=== PATIENT | female | born 1985 | race Caucasian/White ===

== ENCOUNTER 2023-01-16 20:03 | Emergency (ER) | payer OTHER ==
[2023-01-16 20:31] VITALS: BMI 29.1
[2023-01-16] MEDS ORDERED: ACETAMINOPHEN 325 MG TABLET (FP) PO ONE (21:08)
[2023-01-16 21:28] VITALS: BP 104/66; PULSE 69; RESP 14; TEMP 98.9
[2023-01-16] MEDS ORDERED: ACETAMINOPHEN 325 MG TABLET (FP) ONE (22:19)
[2023-01-16 23:14] LABS: EOS % 2.3 % (0-4.5); HEMATOCRIT 35.6 % (32.4-45.2); HEMOGLOBIN 11.6 GM/dL (10.7-15.3); LYMPH % 37.7 % (8-40); MCH 27.7 pg (25.7-33.7); MCHC 32.7 g/dl (32.0-36.0); MEAN CELL VOLUME 84.8 fl (80-96); MEAN PLT VOLUME 8.3 fl (7.5-11.1); MONO % 7.5 % (3.8-10.2); NEUT % 51.5 % (42.8-82.8); PLATELET COUNT 204 10^3/uL (134-434); RBC 4.19 M/mm3 (3.60-5.2); RDW 16.5 % (11.6-15.6); WHITE BLOOD COUNT 8.8 K/mm3 (4.0-10.0)
[2023-01-16 23:29] LABS: CALCIUM 8.6 mg/dL (8.5-10.1)
[2023-01-16 23:30] LABS: ALBUMIN 3.7 g/dl (3.4-5.0)
[2023-01-16 23:35] LABS: BILIRUBIN,TOTAL 0.4 mg/dL (0.2-1); TOT PROT 7.1 g/dl (6.4-8.2)
== END 2023-01-17 00:13 | disposition home or self-care (01) ==
LOC: JER 20:03
DX: R00.2 Palpitations (principal); R07.89 Other chest pain; Z20.822 Contact with and (suspected) exposure to COVID-19
CPT/HCPCS: 0241U-QW; 36415; 71045-TC-FY; 80053; 83735; 84443; 84484; 84703; 85025; 93005; 93010; 99285-25

== ENCOUNTER 2023-03-19 21:40 | Emergency (ER) | payer OTHER ==
[2023-03-19 21:49] VITALS: RESP 18; TEMP 98.2; BMI 28.6
[2023-03-19] MEDS ORDERED: ACETAMINOPHEN 1000 MG/100 ML BAG IVPB ONE (22:11)
[2023-03-19] MEDS ORDERED: SODIUM CHLORIDE 0.9% 500 ML INFUS.BAG IV ONE (22:12)
[2023-03-19] MEDS ORDERED: ONDANSETRON 4 MG/2 ML VIAL IVPUSH ONE (22:12)
[2023-03-19] MEDS ORDERED: FAMOTIDINE 20 MG/50 ML IVPB 20 MG/50 ML MG IVPB ONE ×2 (22:12→22:29)
[2023-03-19] MEDS ORDERED: ACETAMINOPHEN INJECTION 100 ML IVPB ONE (22:29)
[2023-03-19] MEDS ORDERED: ONDANSETRON 4 MG/2 ML VIAL ONE (22:29)
[2023-03-19 22:59] LABS: BASO % 0.9 % (0-2.0); EOS % 2.6 % (0-4.5); HEMATOCRIT 37.7 % (32.4-45.2); HEMOGLOBIN 12.1 GM/dL (10.7-15.3); LYMPH % 32.3 % (8-40); MCH 27.3 pg (25.7-33.7); MCHC 32.2 g/dl (32.0-36.0); MEAN CELL VOLUME 84.7 fl (80-96); MEAN PLT VOLUME 7.8 fl (7.5-11.1); NEUT % 55.2 % (42.8-82.8); PLATELET COUNT 222 10^3/uL (134-434); RBC 4.45 M/mm3 (3.60-5.2); RDW 17.1 % (11.6-15.6); WHITE BLOOD COUNT 8.7 K/mm3 (4.0-10.0)
[2023-03-19 23:20] LABS: ALBUMIN 3.5 g/dl (3.4-5.0); BLOOD UREA NITROGEN 18.5 mg/dL (7-18)
[2023-03-19 23:22] LABS: CREATININE 0.9 mg/dL (0.55-1.3)
[2023-03-19 23:24] LABS: BILIRUBIN,TOTAL 0.4 mg/dL (0.2-1); TOT PROT 6.8 g/dl (6.4-8.2)
[2023-03-20 03:06] VITALS: BP 96/61; PULSE 61
== END 2023-03-20 03:12 | disposition home or self-care (01) ==
LOC: JER 21:40
PROC: 3E033GC Introduction of Other Therapeutic Substance into Peripheral Vein, Percutaneous Approach (ICD-10-PCS; principal; 2023-03-19)
PROC: 3E033GC Introduction of Other Therapeutic Substance into Peripheral Vein, Percutaneous Approach (ICD-10-PCS; 2023-03-19)
PROC: 3E033GC Introduction of Other Therapeutic Substance into Peripheral Vein, Percutaneous Approach (ICD-10-PCS; 2023-03-19)
DX: R10.13 Epigastric pain (principal)
CPT/HCPCS: 36415; 74177-TC; 80053; 83690; 84703; 85025; 99285-25; Q9967

== ENCOUNTER 2023-06-21 10:32 | Emergency (ER) | payer OTHER ==
[2023-06-21 10:46] VITALS: BP 94/61; PULSE 69; RESP 18; TEMP 98.8; BMI 27.9
[2023-06-21] MEDS ORDERED: ACETAMINOPHEN 500 MG TABLET (FP) PO ONE (12:28)
[2023-06-21] MEDS ORDERED: ACETAMINOPHEN 500 MG TABLET (FP) ONE (12:32)
== END 2023-06-21 13:44 | disposition home or self-care (01) ==
LOC: JERFT 10:32
DX: Z48.03 Encounter for change or removal of drains (principal)
CPT/HCPCS: 99283-25

== ENCOUNTER 2023-08-22 23:07 | Emergency (ER) | payer OTHER ==
[2023-08-22 23:11] VITALS: BP 108/74; PULSE 72; RESP 18; TEMP 97.3; BMI 28.3
[2023-08-23] MEDS ORDERED: ACETAMINOPHEN 1000 MG/100 ML BAG IVPB ONE (00:06)
[2023-08-23] MEDS ORDERED: ACETAMINOPHEN INJECTION 100 ML IVPB ONE (00:12)
[2023-08-23] MEDS ORDERED: ACETAMINOPHEN 500 MG TABLET (FP) PO ONE (00:38)
[2023-08-23] MEDS ORDERED: ONDANSETRON *ODT* 4 MG TABLET SL ONE (00:44)
[2023-08-23] MEDS ORDERED: ONDANSETRON *ODT* 4 MG TABLET ONE (00:44)
[2023-08-23] MEDS ORDERED: ACETAMINOPHEN 325 MG TABLET (FP) ONE (00:44)
[2023-08-23 00:50] LABS: EOS % 2.7 % (0-4.5); HEMATOCRIT 40.6 % (32.4-45.2); HEMOGLOBIN 13.4 GM/dL (10.7-15.3); LYMPH % 37.2 % (8-40); MCH 29.3 pg (25.7-33.7); MEAN CELL VOLUME 88.9 fl (80-96); MEAN PLT VOLUME 7.9 fl (7.5-11.1); MONO % 6.7 % (3.8-10.2); NEUT % 52.4 % (42.8-82.8); PLATELET COUNT 247 10^3/uL (134-434); RBC 4.57 M/mm3 (3.60-5.2); RDW 14.9 % (11.6-15.6); WHITE BLOOD COUNT 7.3 K/mm3 (4.0-10.0)
[2023-08-23 01:04] LABS: INR 0.97 (0.83-1.09); PROTHROMBIN TIME (PATIENT) 11.3 SEC (9.7-13.0)
[2023-08-23 02:42] LABS: POTASSIUM 3.4 mmol/L (3.5-5.1)
[2023-08-23 02:44] LABS: ALBUMIN 4.2 g/dl (3.4-5.0); BLOOD UREA NITROGEN 13.9 mg/dL (7-18); CALCIUM 9.2 mg/dL (8.5-10.1)
[2023-08-23 02:48] LABS: CREATININE 0.8 mg/dL (0.55-1.3)
[2023-08-23 02:50] LABS: BILIRUBIN,TOTAL 0.4 mg/dL (0.2-1); TOT PROT 7.7 g/dl (6.4-8.2)
== END 2023-08-23 03:10 | disposition home or self-care (01) ==
LOC: JER 23:07
DX: R07.9 Chest pain, unspecified (principal); Z20.822 Contact with and (suspected) exposure to COVID-19
CPT/HCPCS: 0241U-QW; 36415; 71045-TC-FY; 80053; 84443; 84484; 84703; 85025; 85610; 85730; 93005; 93010; 99285-25; Q0162

== ENCOUNTER 2023-09-16 00:25 | Emergency (ER) | payer OTHER ==
[2023-09-16 00:41] VITALS: BMI 28.3
[2023-09-16 05:36] LABS: BASO % 0.8 % (0-2.0); EOS % 4.2 % (0-4.5); HEMATOCRIT 38.7 % (32.4-45.2); HEMOGLOBIN 12.7 GM/dL (10.7-15.3); LYMPH % 30.1 % (8-40); MCH 29.7 pg (25.7-33.7); MCHC 32.7 g/dl (32.0-36.0); MEAN CELL VOLUME 90.7 fl (80-96); MEAN PLT VOLUME 8.2 fl (7.5-11.1); MONO % 8.8 % (3.8-10.2); NEUT % 56.1 % (42.8-82.8); PLATELET COUNT 218 10^3/uL (134-434); RBC 4.27 M/mm3 (3.60-5.2); RDW 14.4 % (11.6-15.6); WHITE BLOOD COUNT 6.8 K/mm3 (4.0-10.0)
[2023-09-16 05:38] LABS: POTASSIUM 4.3 mmol/L (3.5-5.1)
[2023-09-16 05:40] LABS: CALCIUM 8.3 mg/dL (8.5-10.1)
[2023-09-16 05:41] LABS: ALBUMIN 3.4 g/dl (3.4-5.0); BLOOD UREA NITROGEN 15.4 mg/dL (7-18); MAGNESIUM 1.9 mg/dL (1.8-2.4)
[2023-09-16 05:44] LABS: CREATININE 0.7 mg/dL (0.55-1.3); PHOSPHOROUS 3.6 mg/dL (2.5-4.9)
[2023-09-16 05:45] LABS: BILIRUBIN,TOTAL 0.3 mg/dL (0.2-1); TOT PROT 6.7 g/dl (6.4-8.2)
[2023-09-16 05:59] VITALS: BP 110/75; PULSE 81; RESP 15; TEMP 98.4
[2023-09-16] MEDS ORDERED: DEXAMETHASONE LIQUID 0.5 MG/5 ML PO ONE (06:48)
[2023-09-16] MEDS ORDERED: DEXAMETHASONE SOD PHOSPHATE 10 MG/1 ML VIAL ONE (06:57)
== END 2023-09-16 07:07 | disposition home or self-care (01) ==
LOC: JER 00:25
DX: R53.1 Weakness (principal); B97.4 Respiratory syncytial virus as the cause of diseases classified elsewhere; R20.2 Paresthesia of skin; R05.9 Cough, unspecified; R07.9 Chest pain, unspecified; R06.02 Shortness of breath; Z20.822 Contact with and (suspected) exposure to COVID-19
CPT/HCPCS: 0241U-QW; 36415; 80053; 83735; 84100; 84443; 85025; 99283-25

== ENCOUNTER 2023-11-22 06:06 | Emergency (ER) | payer OTHER ==
[2023-11-22 06:14] VITALS: BMI 26.8
[2023-11-22 09:36] LABS: BASO % 0.7 % (0-2.0); EOS % 1.4 % (0-4.5); HEMOGLOBIN 13.3 GM/dL (10.7-15.3); LYMPH % 31.2 % (8-40); MCH 30.3 pg (25.7-33.7); MEAN PLT VOLUME 7.9 fl (7.5-11.1); MONO % 5.6 % (3.8-10.2); NEUT % 61.1 % (42.8-82.8); PLATELET COUNT 199 10^3/uL (134-434); RBC 4.38 M/mm3 (3.60-5.2); RDW 15.1 % (11.6-15.6); WHITE BLOOD COUNT 5.7 K/mm3 (4.0-10.0)
[2023-11-22 09:53] LABS: POTASSIUM 4.2 mmol/L (3.5-5.1)
[2023-11-22 09:55] LABS: CALCIUM 9.5 mg/dL (8.5-10.1)
[2023-11-22 09:58] LABS: CREATININE 0.7 mg/dL (0.55-1.3)
[2023-11-22 10:00] LABS: BILIRUBIN,TOTAL 0.5 mg/dL (0.2-1); TOT PROT 7.4 g/dl (6.4-8.2)
[2023-11-22 10:04] VITALS: BP 99/78; PULSE 66; RESP 15; TEMP 97.8
== END 2023-11-22 10:56 | disposition home or self-care (01) ==
LOC: JER 06:06
DX: R00.2 Palpitations (principal); R07.9 Chest pain, unspecified; R20.2 Paresthesia of skin; R20.0 Anesthesia of skin; Z20.822 Contact with and (suspected) exposure to COVID-19
CPT/HCPCS: 0241U-QW; 36415; 71046-TC-FY; 80053; 83735; 84439; 84443; 84484; 84703; 85025; 93005; 93010; 99285-25

== ENCOUNTER 2024-04-08 08:52 | Emergency (ER) | payer OTHER ==
[2024-04-08 09:01] VITALS: BMI 28.3
[2024-04-08] MEDS ORDERED: ACETAMINOPHEN INJECTION 100 ML IVPB ONE (09:56)
[2024-04-08] MEDS: ACETAMINOPHEN 1000 MG/100 ML BAG IVPB ONE (10:10)
[2024-04-08 10:23] LABS: BASO % 0.6 % (0-2.0); EOS % 2.4 % (0-4.5); HEMATOCRIT 37.7 % (32.4-45.2); HEMOGLOBIN 12.6 GM/dL (10.7-15.3); LYMPH % 27.2 % (8-40); MCHC 33.4 g/dl (32.0-36.0); MEAN CELL VOLUME 89.8 fl (80-96); MONO % 6.4 % (3.8-10.2); NEUT % 63.4 % (42.8-82.8); PLATELET COUNT 227 10^3/uL (134-434); RDW 13.9 % (11.6-15.6); WHITE BLOOD COUNT 7.9 K/mm3 (4.0-10.0)
[2024-04-08 10:31] LABS: POTASSIUM 4.1 mmol/L (3.5-5.1)
[2024-04-08 10:33] LABS: CALCIUM 9.1 mg/dL (8.5-10.1)
[2024-04-08 10:34] LABS: ALBUMIN 3.7 g/dl (3.4-5.0); BLOOD UREA NITROGEN 12.4 mg/dL (7-18)
[2024-04-08 10:37] LABS: CREATININE 0.8 mg/dL (0.55-1.3)
[2024-04-08 10:39] LABS: BILIRUBIN,TOTAL 0.6 mg/dL (0.2-1)
[2024-04-08] MEDS: SODIUM CHLORIDE 0.9% 500 ML INFUS.BAG IV ONE (10:45)
[2024-04-08 15:57] VITALS: BP 107/65; PULSE 63; RESP 17; TEMP 98.6
== END 2024-04-08 16:02 | disposition home or self-care (01) ==
LOC: JER 08:52
PROC: 3E033NZ Introduction of Analgesics, Hypnotics, Sedatives into Peripheral Vein, Percutaneous Approach (ICD-10-PCS; principal; 2024-04-08)
DX: R51.9 Headache, unspecified (principal); R20.0 Anesthesia of skin; R20.2 Paresthesia of skin; R42 Dizziness and giddiness; R53.1 Weakness; R11.0 Nausea; H57.10 Ocular pain, unspecified eye
CPT/HCPCS: 36415; 70450-TC; 72125-TC; 80053; 84703; 85025; 93005; 93010; 99285-25; J0131

== ENCOUNTER 2024-07-20 00:50 | Emergency (ER) | payer OTHER ==
[2024-07-20 01:05] VITALS: BP 91/60; PULSE 85; RESP 20; TEMP 98.4; BMI 27.9
[2024-07-20] MEDS ORDERED: ACETAMINOPHEN INJECTION 100 ML ONE (01:49)
[2024-07-20] MEDS ORDERED: ONDANSETRON 4 MG/2 ML VIAL ONE (01:50)
[2024-07-20 02:08] LABS: BASO % 0.4 % (0-2.0); EOS % 0.9 % (0-4.5); HEMATOCRIT 37.8 % (32.4-45.2); HEMOGLOBIN 12.6 GM/dL (10.7-15.3); LYMPH % 15.3 % (8-40); MCH 29.3 pg (25.7-33.7); MCHC 33.5 g/dl (32.0-36.0); MEAN CELL VOLUME 87.5 fl (80-96); MEAN PLT VOLUME 7.6 fl (7.5-11.1); MONO % 8.2 % (3.8-10.2); NEUT % 75.2 % (42.8-82.8); PLATELET COUNT 224 10^3/uL (134-434); RBC 4.32 M/mm3 (3.60-5.2); RDW 14.9 % (11.6-15.6); WHITE BLOOD COUNT 8.9 K/mm3 (4.0-10.0)
[2024-07-20] MEDS: LACTATED RINGERS SOLUTION 1000 ML INFUS.BAG IV ONE (02:09)
[2024-07-20] MEDS: ONDANSETRON 4 MG/2 ML VIAL IVPUSH ONE (02:09)
[2024-07-20] MEDS: ACETAMINOPHEN 1000 MG/100 ML BAG IVPB ONE (02:16)
[2024-07-20 02:40] LABS: POTASSIUM 4.4 mmol/L (3.5-5.1)
[2024-07-20 02:42] LABS: CALCIUM 8.7 mg/dL (8.5-10.1)
[2024-07-20 02:43] LABS: ALBUMIN 3.3 g/dl (3.4-5.0); BLOOD UREA NITROGEN 14.7 mg/dL (7-18)
[2024-07-20 02:46] LABS: CREATININE 1.1 mg/dL (0.55-1.3)
[2024-07-20 02:47] LABS: BILIRUBIN,TOTAL 0.6 mg/dL (0.2-1)
[2024-07-20] MEDS: SODIUM CHLORIDE 0.9% 500 ML INFUS.BAG IV ONE (03:01)
[2024-07-20 03:40] LABS: MAGNESIUM 1.9 mg/dL (1.8-2.4)
[2024-07-20 03:49] LABS: HCG,QUALITATIVE URINE Negative
[2024-07-20 03:50] LABS: EPI CELLS 12 /uL (0-25.1); HYALINE CASTS 1 /uL (0-3.1); PH,URINE 5.5 (5.0-8.0); URINE APPEARANCE CLEAR; URINE BACTERIA 1013 /uL (0-1359); URINE BILIRUBIN NEGATIVE (NEGATIVE); URINE COLOR YELLOW; URINE GLUCOSE (UA) NEGATIVE (NEGATIVE); URINE KETONE 1+ (NEGATIVE); URINE LEUK ESTERASE NEGATIVE (NEGATIVE); URINE NITRITE NEGATIVE (NEGATIVE); URINE PROTEIN NEGATIVE (NEGATIVE); URINE RBC 64 /uL (0-23.9); URINE UROBILINOGEN 0.2 mg/dL (0.2-1.0); URINE WBC 19 /uL (0-25.8)
[2024-07-20] MEDS ORDERED: CEPHALEXIN MONOHYDRATE 500 MG CAPSULE (UD) ONE (04:01)
[2024-07-20] MEDS: CEPHALEXIN MONOHYDRATE 500 MG CAPSULE (UD) PO ONE (04:03)
== END 2024-07-20 04:17 | disposition home or self-care (01) ==
LOC: JER 00:50
PROC: 3E033NZ Introduction of Analgesics, Hypnotics, Sedatives into Peripheral Vein, Percutaneous Approach (ICD-10-PCS; principal; 2024-07-20)
PROC: 3E033GC Introduction of Other Therapeutic Substance into Peripheral Vein, Percutaneous Approach (ICD-10-PCS; 2024-07-20)
DX: R19.7 Diarrhea, unspecified (principal); N39.0 Urinary tract infection, site not specified; R50.9 Fever, unspecified; M79.10 Myalgia, unspecified site; R53.1 Weakness; R10.30 Lower abdominal pain, unspecified; Z20.822 Contact with and (suspected) exposure to COVID-19
CPT/HCPCS: 0241U-QW; 36415; 80053; 81003; 83735; 84703; 85025; 87086; 93005; 93010; 99284-25; J0131

== ENCOUNTER 2024-07-21 09:03 | Emergency (ER) | payer OTHER ==
[2024-07-21 09:36] VITALS: BMI 27.9
[2024-07-21] MEDS ORDERED: FAMOTIDINE 20 MG TABLET ONE ×2 (10:16→10:18)
[2024-07-21] MEDS ORDERED: ACETAMINOPHEN 325 MG TABLET (FP) ONE (10:16)
[2024-07-21] MEDS: FAMOTIDINE 20 MG TABLET PO ONE (10:19)
[2024-07-21] MEDS: ACETAMINOPHEN 500 MG TABLET (FP) PO ONE (10:19)
[2024-07-21 12:33] VITALS: BP 94/61; PULSE 62; RESP 20; TEMP 98.1
== END 2024-07-21 12:37 | disposition home or self-care (01) ==
LOC: JER 09:03
DX: R19.7 Diarrhea, unspecified (principal); R11.2 Nausea with vomiting, unspecified; R10.13 Epigastric pain
CPT/HCPCS: 87045; 87046; 87209; 99283-25